=== PATIENT | female | born 1950 | race Caucasian/White ===

== ENCOUNTER → 2016-06-06 | Outpatient (CLI) | payer MEDICARE, OTHER ==
[~2016-06-06] MED LIST: ASPIRIN325 MG PO; BENADRYL-DPS25 MG PO; CALTRATE-600 W600 MG PO; CEPACOL SORE T1 EACH PO; CLARITIN DPS10 MG PO; COZAAR100 MG PO; HYDRODIURIL-DPS25 MG PO; LEVAQUIN DPS500 MG PO; LEXAPRO DPS20 MG PO; MAALOX DPS30 ML PO; MICRO-K DPS10 MEQ PO; MILK OF MAGNESI10 ML PO; MOBIC15 MG PO; NEURONTIN DPS300 MG PO; NORVASC5 MG PO; OXY IR DPS5 MG PO; PROTONIX40 MG PO; SENOKOT S1 TAB PO; THERA1 EACH PO; TYLENOL DPS325 MG PO; ULTRAM DPS50 MG PO; VITAMIN D1000 UNI1 PO
== END | disposition home or self-care (01) ==
LOC: RAD.S 09:04
DX: Z12.31 Encounter for screening mammogram for malignant neoplasm of breast (principal)